=== PATIENT | female | born 1970 | race Caucasian/White ===

== ENCOUNTER 2018-06-06 15:12 | Inpatient (IN) | payer MEDICAID ==
[~2018-06-06] VITALS: Ht 172.7 cm; Wt 85.5 kg
[2018-06-06] MEDS ORDERED: CLON1 PO (17:39)
[2018-06-06] MEDS ORDERED: BUPR-93 PO (17:39)
[2018-06-06] MEDS ORDERED: TRAZ-219 PO (17:39)
[2018-06-06] MEDS ORDERED: PROP20TA18 PO (17:39)
[2018-06-06] MEDS ORDERED: HYDR25TA PO (17:39)
[2018-06-06 19:34] VITALS: BP 117/90
[2018-06-06] MEDS ORDERED: PNEUMOCOCCAL VACCINE POLYVALENT 0.5 ML VIAL [PPSV23] IM ONE (20:30)
[2018-06-07] MEDS: LORazepam 2 MG TABLET PO PRN ×2 (04:29→16:55)
[2018-06-07 05:25] VITALS: BP_SYST 113; BP_SYST 122; BP_DIAS 76; BP_DIAS 78
[2018-06-07 08:51] VITALS: BP 140/79
[2018-06-07] MEDS: PROPRANOLOL HCL 20 MG TABLET PO SCH (09:00)
[2018-06-07] MEDS: HYDROCHLOROTHIAZIDE 25 MG TABLET PO SCH (09:00)
[2018-06-07] MEDS: NICOTINE 21 MG/24 HOUR PATCH TD SCH (09:00)
[2018-06-07] MEDS: BuPROPion HCL XL 150 MG ER TABLET PO SCH (10:45)
[2018-06-07] MEDS ORDERED: LOPERAMIDE HCL 2 MG CAPSULE PO PRN (12:45)
[2018-06-07 12:49] VITALS: BP 136/69
[2018-06-07 16:08] VITALS: BP 137/81
[2018-06-07] MEDS: ONDANSETRON HCL 4 MG TABLET PO PRN (16:27)
[2018-06-07] MEDS: HALOPERIDOL 5 MG TABLET PO PRN (18:05)
[2018-06-07] MEDS: OLANZapine 5 MG TABLET PO SCH (20:47)
[2018-06-07] MEDS: ZOLPIDEM TARTRATE 10 MG TABLET PO PRN (21:09)
[2018-06-08 00:46] VITALS: BP 126/81
[2018-06-08 08:53] LABS: BASOPHILS % (AUTO) 0.6 % (0.0-2.0); EOSINOPHILS % (AUTO) 1.9 % (1.0-6.0); HEMATOCRIT 38.5 % (36-46); HEMOGLOBIN 12.8 g/dL (12.0-16.0); LYMPHOCYTES # (AUTO) 2.1 K/uL (1.0-4.8); LYMPHOCYTES % (AUTO) 33.3 % (22.0-44.0); MEAN CORPUSCULAR HEMOGLOBIN 30.4 pg (26.0-34.0); MEAN CORPUSCULAR HGB CONC 33.3 G/dL (31.0-37.0); MEAN CORPUSCULAR VOLUME 91 fL (80-100); MONOCYTES # (AUTO) 0.6 K/uL (0.1-1.0); MONOCYTES % (AUTO) 9.6 % (2.0-9.0); NEUTROPHILS # (AUTO) 3.5 K/uL (1.8-7.7); NEUTROPHILS % (AUTO) 54.6 % (40.0-70.0); PLATELET COUNT (AUTO) 234 K/uL (150-450); RED BLOOD CELL COUNT(AUTO) 4.22 MIL/uL (4.00-5.20)
[2018-06-08] MEDS: HYDROCHLOROTHIAZIDE 25 MG TABLET PO SCH (08:54)
[2018-06-08] MEDS: PROPRANOLOL HCL 20 MG TABLET PO SCH (08:54)
[2018-06-08] MEDS: LORazepam 2 MG TABLET PO PRN ×2 (08:54→17:14)
[2018-06-08] MEDS: HALOPERIDOL 5 MG TABLET PO PRN (08:54)
[2018-06-08] MEDS: BuPROPion HCL XL 150 MG ER TABLET PO SCH (08:54)
[2018-06-08] MEDS: NICOTINE 21 MG/24 HOUR PATCH TD SCH (08:55)
[2018-06-08 09:04] LABS: HEMOGLOBIN A1C 5.8 % (4.5-6.2)
[2018-06-08 09:25] LABS: ALANINE AMINOTRANSFERASE 42 U/L (12-78); ALBUMIN 3.1 g/dL (3.4-5.0); ALKALINE PHOSPHATASE 77 U/L (46-116); ANION GAP 8 mmol/L (8-16); ASPARTATE AMINOTRANSFERASE 27 U/L (15-37); BILIRUBIN,TOTAL 0.1 mg/dL (0.1-1.0); CALCIUM, TOTAL 8.4 mg/dL (8.8-10.5); CARBON DIOXIDE 25 mmol/L (22-29); CHLORIDE 108 mmol/L (98-107); CHOLESTEROL 120 mg/dL (131-200); CREATININE 0.67 mg/dL (0.60-1.30); GLOMERULAR FILTR. RATE CALC > 60 mL/min (>60); GLUCOSE,RANDOM 90 mg/dL (70-110); HCG,QUANTITATIVE < 1 mIU/mL (0-6); HDL CHOLESTEROL 40 mg/dL (40-60); LDL CHOL (CALC.) 72 mg/dL (0-130); POTASSIUM 3.8 mmol/L (3.5-5.1); SODIUM SERUM 141 mmol/L (136-145); THYROID STIMULATING HORMONE 1.25 uIU/mL (0.36-3.74); TOTAL PROTEIN, SERUM 5.9 g/dL (6.4-8.2); TRIGLYCERIDES 41 mg/dL (15-150); UREA NITROGEN, BLOOD 10 mg/dL (7-18)
[2018-06-08 09:26] VITALS: BP 118/72
[2018-06-08 09:29] LABS: FREE T4 (FREE THYROXINE) < 0.10 ng/dL (0.76-1.46)
[2018-06-08 16:12] VITALS: BP 118/86
[2018-06-08] MEDS: OLANZapine 5 MG TABLET PO SCH (20:05)
[2018-06-08] MEDS: ZOLPIDEM TARTRATE 10 MG TABLET PO PRN (21:52)
[2018-06-09 02:05] VITALS: BP 122/80
[2018-06-09] MEDS: BuPROPion HCL XL 150 MG ER TABLET PO SCH (08:21)
[2018-06-09] MEDS: HYDROCHLOROTHIAZIDE 25 MG TABLET PO SCH (08:21)
[2018-06-09] MEDS: NICOTINE 21 MG/24 HOUR PATCH TD SCH (08:22)
[2018-06-09] MEDS: PROPRANOLOL HCL 20 MG TABLET PO SCH (08:22)
[2018-06-09 08:28] VITALS: BP 107/66
[2018-06-09] MEDS: ONDANSETRON HCL 4 MG TABLET PO PRN (08:36)
[2018-06-09] MEDS: HALOPERIDOL 5 MG TABLET PO PRN (08:36)
[2018-06-09] MEDS: LORazepam 2 MG TABLET PO PRN ×2 (08:37→16:12)
[2018-06-09 16:03] VITALS: BP 110/68
[2018-06-09] MEDS: OLANZapine 5 MG TABLET PO SCH (20:20)
[2018-06-10 00:06] VITALS: BP 118/70
[2018-06-10] MEDS: ONDANSETRON HCL 4 MG TABLET PO PRN (05:09)
[2018-06-10] MEDS: LORazepam 2 MG TABLET PO PRN (05:09)
[2018-06-10] MEDS: NICOTINE 21 MG/24 HOUR PATCH TD SCH (08:03)
[2018-06-10] MEDS: PROPRANOLOL HCL 20 MG TABLET PO SCH (08:03)
[2018-06-10] MEDS: HALOPERIDOL 5 MG TABLET PO PRN (08:03)
[2018-06-10] MEDS: HYDROCHLOROTHIAZIDE 25 MG TABLET PO SCH (08:03)
[2018-06-10] MEDS: BuPROPion HCL XL 150 MG ER TABLET PO SCH (08:03)
[2018-06-10 09:17] VITALS: BP 120/80
[2018-06-10] MEDS ORDERED: OLAN5TAB2 PO (10:38)
== END 2018-06-10 13:05 | disposition home or self-care (01) | DRG 751 ==
LOC: B2S 19:06
PROVIDERS: ADMIT Psychiatry & Neurology Psychiatry; ATTEND Psychiatry & Neurology Psychiatry
DX: F29 Unspecified psychosis not due to a substance or known physiological condition (principal); F31.64 Bipolar disorder, current episode mixed, severe, with psychotic features; R00.0 Tachycardia, unspecified; F41.9 Anxiety disorder, unspecified; Z88.0 Allergy status to penicillin; Z79.899 Other long term (current) drug therapy
CPT/HCPCS: 83036; 84439; 84443; 87081; Q0162